=== PATIENT | male | born 1960 | race Caucasian/White ===

== ENCOUNTER 2016-12-21 18:56 | Emergency (ER) | payer BC ==
[~2016-12-21] VITALS: Ht 172.7 cm; Wt 113.4 kg
--- NOTE | ~2016-12-21 | EKG ---
PATIENT: KACEY CRUZ UNIT #: [id number] Ventricular Rate: 89 BPM Atrial Rate: 89 BPM P-R Interval: 146 ms QRS Duration: 80 ms Q-T Interval: 362 ms QTC Calculation(Bezet): 440 ms P [place]: 51 degrees Calculated R [place]: 58 degrees Calculated T [place]: 40 degrees Diagnosis Line: Normal sinus rhythm Diagnosis Line: Normal ECG Diagnosis Line: No previous ECGs available Diagnosis Line: Confirmed by PRABHA MAJOR MD ([id number]) on Diagnosis Line: 12/23/2016 6:38:23 PM INTERPRETING MD: KODY
--- NOTE | ~2016-12-21 | CR63 ---
[facility]. [facility] A Service of [facility] RADIOLOGY TEXT RESULTS PATIENT: KACEY CRUZ JR LOCATION: SED : 56 UNIT #: [id number] AGE: [address]: Everton Pérez SEX: M ORDER DR: [id number] [place] [id number] E MR#: [id number] Acc #: [id number] NAME: KACEY CRUZ JR : 1960 SEX: M STUDY DATE/TIME: 12/21/2016 19:39 UNIT: SED ROOM: STUDY DESCRIPTION: CR Chest 2 View Attending Physician: Everton Pérez P.A.-C. Ordering Physician: Everton Pérez P.A.-C. Primary Care Physician: Primary Care Physician No MEDICAL IMAGING REPORT This report is preliminary unless electronic signature is present. EXAM PA and lateral chest HISTORY Shortness of air today. FINDINGS PA and lateral examination of the chest upright shows a good expansion of the parenchyma with a normal distribution of the pulmonary vascularity. There is no indication of congestion, effusion, infiltrate, tumor, or nodular density. The pleural reflections and diaphragmatic contours are normal. The cardiac silhouette and mediastinal anatomy is within normal limits. IMPRESSION Normal chest. Dictated by... Pankaj Carmona M.D. THIS IS AN ELECTRONICALLY VERIFIED REPORT Pankaj Carmona M.D. at 12/22/2016 11:44 PM NAEEM/jaun TD: 12/22/2016 08:24 JOB #: [id number] MEDICAL IMAGING REPORT Page 1 of 1
[2016-12-21] MEDS ORDERED: CRESTOR PO (19:15)
[2016-12-21] MEDS ORDERED: OMEPRAZOLE40 M1 PO (19:15)
[2016-12-21] MEDS ORDERED: TENORMIN50 MG PO (19:16)
[2016-12-21] MEDS ORDERED: ALBUTEROL17 GM INH (19:16)
[2016-12-21] MEDS ORDERED: FISH OIL 1,2001 EAC1 PO (19:16)
[2016-12-21 20:08] LABS: BASOPHIL% 0.4 % (0-2.5); EOSINOPHIL# 0.2 X10e3 (0-0.7); EOSINOPHIL% 2.8 % (0.0-7.0); HEMATOCRIT 45.8 % (38.0-50.0); LYMPHOCYTE# 2.1 X10e3 (1.0-3.5); LYMPHOCYTE% 27.2 % (17.0-45.0); MEAN CORPUSCULAR HEMOGLOBIN 32.1 PG (28-34); MEAN CORPUSCULAR HGB CONC 34.9 g/dL (30-36); MEAN PLATELET VOLUME 9.8 FL (6.5-11.5); MONOCYTE# 0.8 X10e3 (0-1.0); MONOCYTE% 9.9 % (3.0-12.0); NEUTROPHIL# 4.6 X10e3 (1.5-7.1); NEUTROPHIL% 59.7 % (40-75); PLATELET COUNT 156 X10e3 (140-420); RED BLOOD COUNT 4.98 X10e (3.90-5.60); RED CELL DISTRIBUTION WIDTH 13.6 % (11.0-15.5); WHITE BLOOD COUNT 7.6 X10e3 (4.0-10.5)
[2016-12-21 20:10] LABS: DIFF IND NO
[2016-12-21 20:18] LABS: POC - CKMB 1.5 ng/mL (0.0-7.9)
[2016-12-21 20:19] LABS: POC - MYOGLOBIN 82.5 ng/mL (0.0-169.0); POC - TROPONIN <0.05 ng/mL (<=0.05)
[2016-12-21 20:32] LABS: ALBUMIN SERUM 4.5 g/dL (3.5-5.0); ALKALINE PHOSPHATASE 90 U/L (32-92); ALT (SGPT) 43 U/L (10-40); AST (SGOT) 26 U/L (10-42); BILIRUBIN,TOTAL 0.6 mg/dL (0.2-2.0); BLOOD UREA NITROGEN 18 mg/dL (9-23); CALCIUM SERUM 9.5 mg/dL (8.4-10.2); CARBON DIOXIDE 25 mmol/L (22-31); CHLORIDE 103 mmol/L (100-111); CREATININE SERUM 0.9 mg/dL (0.6-1.4); GLOM FILT RATE Estimated 93.8 mL/min (>60); GLUCOSE FASTING 118 mg/dL (70-110); PROTEIN TOTAL SERUM 7.2 g/dL (6.0-8.3); SODIUM 137 mmol/L (135-145)
[2016-12-21 20:33] LABS: BILIRUBIN, DIRECT <0.1 mg/dL (0.0-0.2); BILIRUBIN,INDIRECT 0.5 mg/dL (0.0-0.9)
[2016-12-21 22:10] LABS: POC - CKMB 1.5 ng/mL (0.0-7.9); POC - MYOGLOBIN 58.3 ng/mL (0.0-169.0)
[2016-12-21 22:11] LABS: POC - TROPONIN <0.05 ng/mL (<=0.05)
== END 2016-12-21 22:41 | disposition home or self-care (01) ==
LOC: SED 18:56
PROVIDERS: Physician Assistant
DX: J44.1 Chronic obstructive pulmonary disease with (acute) exacerbation (principal); J06.9 Acute upper respiratory infection, unspecified; J45.909 Unspecified asthma, uncomplicated; K21.9 Gastro-esophageal reflux disease without esophagitis; E78.5 Hyperlipidemia, unspecified; I10 Essential (primary) hypertension; F17.210 Nicotine dependence, cigarettes, uncomplicated
CPT/HCPCS: 36415; 71020; 80048; 80076; 82553; 83874; 83880; 84484; 85025; 93005; 96374; 99285; J2930